=== PATIENT | female | born 1970 | race Caucasian/White ===

== ENCOUNTER 2019-01-15 13:26 | Observation (INO) ==
[2019-01-15] MEDS ORDERED: Isovue-370 500 ML BOTTLE IVP ONE (14:14)
[2019-01-15] MEDS ORDERED: Aspirin 325 MG TABLET PO ONE (14:16)
--- NOTE | 2019-01-15 14:33 | Emergency Department Note ---
Disposition Clinical Impression: Chest pain Qualifiers: Chest pain type: unspecified Qualified Code(s): R07.9 - Chest pain, unspecified Disposition: Admitted As Inpatient Condition: Fair Referrals: NONE,PCP [Primary Care Provider] - Forms: ED Satisfaction Letter Time of Disposition: 16:45 General Adult HPI - General Chief complaint: ED Chest Pain Stated complaint: Chest Pain Time Seen by Provider: 01/15/19 13:41 Source: patient Limitations: no limitations Nursing Notes Reviewed: Yes Vital Signs Reviewed: Yes - History of Present Illness HPI Narrative: Presents with chest pain is not present for the last 2 days intermittently radiating to the back between shoulder blades and intermittently pleuritic and she did go [facility] department 2 days ago was admitted overnight and her blood pressure went down and was at 75 systolic and they did a stress test which is positive and wanted to keep her for a catheterization but she did not have confidence in the cardiology doctors at that hospital so she left AGAINST MEDICAL ADVICE and then came here today to be admitted. She is still having the chest discomfort. She denies any pain or swelling of the lower extremities. No respiratory symptoms or fever. Social history: Stopped smoking in 2006 however does intermittently smoke. Family history: Positive for heart disease with her father Pain Scale: 4 - Related Data Allergies Allergy/AdvReac Type Severity Reaction Status Date / Time No Known Allergies Allergy Verified 01/15/19 13:57 Review of Systems: Constitutional: No fever Vision: No blurred vision ENT: No rhinorrhea Respiratory: No cough Allergic: No allergies : No blood in urine GI: No blood in stool Hematologic: No bruising Dermatologic: No skin rash Musculoskeletal: No pain in the extremities Neuro: No numbness of the extremities Past Medical History - Past Medical History Medical history: Reports: no medical history Psychiatric history: Reports: no psych history - Social History Smoking Status: Former smoker Smokeless Tobacco Status: No Alcohol use: Reports: none Drug use: Reports: none Physical Exam CONSTITUTIONAL: Well-appearing; well-nourished; A&O X 3, in no apparent distress HEAD: Normocephalic; atraumatic EYES: PERRL, no scleral icterus NOSE: The nose is normal in appearance without rhinorrhea NECK: No JVD or distended neck veins RESP: Normal chest excursion with respiration; breath sounds clear and equal bilaterally; no wheezes, rhonchi, or rales CARD: Regular rhythm, without murmurs, rub or gallop ABD: Non-distended; non-tender, soft, without rigidity, rebound or guarding,no pulsatile mass CHEST: No pain with palpation SKIN: Normal for age and race; warm and dry without diaphoresis ; no apparent lesions EXTREMITIES: Pulses are 2 plus and equal times 4 extremities, no peripheral edema or calf muscle pain - General Limitations: no limitations General appearance: alert, in no apparent distress Course Vital Signs Temperature 98.1 F 01/15/19 13:41 Pulse Rate 82 01/15/19 13:41 Respiratory Rate 20 01/15/19 13:41 Blood Pressure 134/90 01/15/19 13:41 O2 Sat by Pulse Oximetry 99 01/15/19 13:41 Temperature 97.9 F 01/15/19 13:48 Pulse Rate 77 01/15/19 15:58 Respiratory Rate 16 01/15/19 15:58 Blood Pressure 106/88 01/15/19 15:58 O2 Sat by Pulse Oximetry 97 01/15/19 15:58 Oxygen Delivery Oxygen Delivery Room Air Medical Decision Making - MDM Narrative Medical decision making narrative: i did review the patient's EKG and this does show normal sinus rhythm with a rate of 78 and some nonspecific anterior ST change but no acute ischemic change or arrhythmia and we do have testing ordered here including CTA of the chest as she does have back pain and pleuritic pain and this will look for pulmonary embolism and dissection as well we will get records from the previous hospital. The hypotension is concerning as well as the abnormal stress test and the patient will be admitted here. 1434 I did review the patient's test results. I did extend evaluation by getting a CT scan of the chest but this does not show evidence of dissection or pulmonary embolism. The story is concerning in that the patient was hypotensive with a blood pressure of 75 at the other hospital as well as a positive stress test and she left before the catheterization could be done and so she came here because she states she has more confidence in this hospital and I did speak with the hospitalist to accept the patient for admission and IV will terminate admission at this time. Initial troponin is negative. 1645 - Medical Records Medical records reviewed: Yes I reviewed the patient's medical records. - Lab Data Lab results reviewed: Yes I reviewed the patient's lab results. Result diagrams: 01/15/19 14:24 01/15/19 14:24 Lab Results 01/15/19 01/15/19 Range/Units 14:24 14:24 WBC 10.6 (4.3-11.1) K/mcL RBC 4.64 (3.82-4.97) M/mcL Hgb 13.7 (11.5-15.4) g/dL Hct 40.9 (35.3-44.9) % MCV 88.1 (83.0-100.0) fL MCH 29.5 (28.0-33.3) pg MCHC 33.5 (31.6-35.5) g/dL RDW 13.0 (11.5-14.5) % Plt Count 336 (140-400) K/mcL MPV 9.9 (9.4-12.4) fL Immature Gran % 0.4 (0-4) % Seg Neutrophils % 66.2 % Lymphocytes % 24.8 % Monocytes % 6.0 % Eosinophils % 2.3 % Basophils % 0.3 % Neutrophils # 7.0 (1.6-8.9) K/mcL Lymphocytes # 2.6 (0.6-4.6) K/mcL Monocytes # 0.6 (0.0-1.3) K/mcL Eosinophils # 0.2 (0.0-0.6) K/mcL Basophils # 0.0 (0.0-0.2) K/mcL Sodium 137 (136-145) mEq/L Potassium 3.8 (3.5-5.1) mEq/L Chloride 105 (98-107) mEq/L Carbon Dioxide 23 (23-29) mEq/L BUN 19 (6-20) mg/dL Creatinine 0.83 (0.60-1.20) mg/dL Est GFR ( Amer) > 60 (> 60) Est GFR (Non-Af Amer) > 60 (> 60) BUN/Creatinine Ratio 23 (6-26) Glucose 94 (70-105) mg/dL Calculated Osmolality 286 (280-300) Calcium 9.3 (8.6-10.3) mg/dL Troponin I < 0.03 (< 0.04) ng/mL - Radiology Data Radiology results reviewed: Yes I reviewed the patient's radiology results.
[2019-01-15 14:36] LABS: Basophils % 0.3 %; Eosinophils # 0.2 K/mcL (0.0-0.6); Eosinophils % 2.3 %; Hematocrit 40.9 % (35.3-44.9); Hemoglobin 13.7 g/dL (11.5-15.4); Immature Granulocytes % 0.4 % (0-4); Lymphocytes # 2.6 K/mcL (0.6-4.6); Lymphocytes % 24.8 %; Mean Corpuscular HGB Conc 33.5 g/dL (31.6-35.5); Mean Corpuscular Hemoglobin 29.5 pg (28.0-33.3); Mean Corpuscular Volume 88.1 fL (83.0-100.0); Mean Platelet Volume 9.9 fL (9.4-12.4); Monocytes # 0.6 K/mcL (0.0-1.3); Platelet Count 336 K/mcL (140-400); Red Blood Count 4.64 M/mcL (3.82-4.97); Segmented Neutrophils % 66.2 %
[2019-01-15 14:57] LABS: BUN/Creatinine Ratio 23 (6-26); Blood Urea Nitrogen 19 mg/dL (6-20); Calcium 9.3 mg/dL (8.6-10.3); Carbon Dioxide 23 mEq/L (23-29); Chloride 105 mEq/L (98-107); Glucose 94 mg/dL (70-105); Osmolality,Calculated 286 (280-300); Potassium 3.8 mEq/L (3.5-5.1); Sodium 137 mEq/L (136-145); Troponin I < 0.03 ng/mL (< 0.04); eGFR For Non-African Americans > 60 (> 60)
[2019-01-15] MEDS ORDERED: Acetaminophen 325 MG TABLET PO PRN (17:11)
[2019-01-15] MEDS ORDERED: Ondansetron ODT 4 MG TAB.RAPDIS SL PRN (17:11)
[2019-01-15] MEDS ORDERED: Naloxone 0.4 MG/ML INJ IVP PRN (17:11)
--- NOTE | 2019-01-15 17:25 | Internal Med History&Physical ---
Date of Encounter: 01/15/19 Time of Encounter: 17:05 Internal Medicine - H&P: HPI Chief complaint: chest pain Admitted From: Emergency Dept Plans for Post Hospital Care: Home History of present illness: Ms. Grace is a 48 year old female with no past med history presented to ED with chest discomfort. She was subsequently placed in observation. Ms Grace stated that she has been experiencing L sided chest discomfort ra diating to her shoulder and to her back for the last 2-3 days. She has noticed increased fatigue and dyspnea over the last 2 weeks. No fever or chills. No nausea or vomiting. She presented to [facility] and was admitted. She underwent stress test and only went 3 minutes and developed chest pain. She was told that at her age she should not have had these results. She was not happy w ith her care and left the hospital and came to [facility]. Records have been requested. She continues to have similar chest discomfort. Nothing has made it better or worse. No cough. No GI issues. No one ill. No prior episode. Unsure of cholesterol (not gone to doctor in 4 years). Father had massive [place] at age 49. At this time she is comfortable. Past Med Surg Social Fam HX - Past Medical History Source: patient Medical history: no medical history Psychiatric history: no psych history - Past Surgical History Additional surgical history: C section with hysterectomy (ovaries remain) - Social History Smoking Status: Former smoker Smokeless Tobacco Status: No Alcohol use: none Drug use: none - Family History Father Race: Hx Family Cardiac Disorders: Yes (Massive [place] age 49) Internal Medicine - H&P: Meds Allergy/AdvReac Type Severity Reaction Status Date / Time No Known Allergies Allergy Verified 01/15/19 13:57 All Systems PM: A 10-system review of systems was performed and is negative for pertinent findings except as documented above in the HPI. - Constitutional Constitutional: fatigue, malaise - EENT Eyes: no change in vision, no dry eye Ears: no decreased hearing Nose, mouth and throat: no dry mouth, no sinus pain - Cardiovascular Cardiovascular ROS IM: chest pain, dyspnea on exertion, edema (Chronic after standing all day.), no diaphoresis - Respiratory Respiratory: dyspnea on exertion, no wheezing, no snoring, no chest congestion - Gastrointestinal Gastrointestinal: no diarrhea, no heartburn, no melena - Genitourinary Genitourinary: no dysuria, no urinary frequency Menstruation: post hysterectomy - Musculoskeletal Musculoskeletal ROS IM: no arthralgias, no joint swelling - Integumentary Integumentary IM: no erythema, no rash - Neurological Neurological ROS: no tingling, no vertigo - Endocrine Endocrine IM: no cold intolerance - Hematologic/Lymphatic Hematologic/Lymphatic: no easy bleeding - Allergic/Immunologic Allergic/Immunologic: no itchy eyes - Constitutional Vitals: Temp Pulse Resp BP Pulse Ox 97.9 F 77 16 106/88 97 01/15/19 13:48 01/15/19 15:58 01/15/19 15:58 01/15/19 15:58 01/15/19 15:58 General appearance: Present: A&O X 3, pleasant, answers questions appropriately Exam: See below - Head Head exam: Present: normocephalic - Eye Eye exam: Present: EOMI, conjuntiva pink - ENT ENT exam: Present: mucous membranes moist - Neck Neck exam general surgery: Present: normal inspection. Absent: thyromegaly - Respiratory Respiratory exam: Present: rales (Scant in bases). Absent: decreased breath sounds, rhonchi, wheezes - Cardiovascular Cardiovascular exam: Present: RRR. Absent: irregular rhythm, +S3, +S4, systolic murmur, tachycardia - GI/Abdominal GI/Abdominal exam: Present: normal bowel sounds, soft. Absent: tenderness - Extremities Exam Extremities exam: Present: pedal edema, warm. Absent: tenderness - Neurological Exam Neurological exam: Present: alert, oriented X3, no focal deficits - Skin Skin exam: Present: dry, warm. Absent: rash Internal Med - H&P Results - Labs CBC & Chem 7: 01/15/19 14:24 01/15/19 14:24 Labs: Short CBC 01/15/19 Range/Units 14:24 WBC 10.6 (4.3-11.1) K/mcL Hgb 13.7 (11.5-15.4) g/dL Hct 40.9 (35.3-44.9) % Plt Count 336 (140-400) K/mcL Neutrophils # 7.0 (1.6-8.9) K/mcL BMP 01/15/19 14:24 Sodium 137 Potassium 3.8 Chloride 105 Carbon Dioxide 23 BUN 19 Creatinine 0.83 Glucose 94 Calcium 9.3 Cardiac Enzymes 01/15/19 Range/Units 14:24 Troponin I < 0.03 (< 0.04) ng/mL - EKG Data -: EKG Interpreted by Myself EKG shows normal: sinus rhythm Rate: normal - EKG Data WNL Rhythm: NSR - EKG Data Prior EKG available for review: no - Impressions ITS Impressions Chest CTA 01/15/19 14:14 IMPRESSION: No evidence of pulmonary embolism or acute pulmonary abnormality. D/ / Sandor Duran MD / Sandor Duran MD Interpreting Provider: Sandor Duran MD Chest X-Ray 01/15/19 14:14 IMPRESSION: No acute process. D/ / Dominic Gaxiola MD / Dominic Gaxiola MD Interpreting Provider: Dominic Gaxiola MD - Assessment and Plan (1) Unstable angina Current Visit: Yes Status: Suspected Assessment and plan: Ms Grace is 48 y/o female presenting with 2-3 days of L side chest pain. Had stress test at [facility] - sounds suboptimal. Records requested. Place in observation. Troponins. NPO midnight Lipid panel in AM Echocardiogram Cardiology eval - ? further evaluation Records from [facility] pending. Risk: Family history. Chol? Former smoker (2) Morbid obesity with BMI of 40.0-44.9, adult Current Visit: Yes Status: Chronic - Time Spent With Patient Total time spent is greater than 50% in coordination of care (as documented) at patient's floor/unit and/or counseling patient:
[2019-01-15] MEDS ORDERED: Nitroglycerin 0.4 MG TAB.SUBL SL PRN (17:47)
[2019-01-15] MEDS: Ibuprofen 400 MG TABLET PO PRN (19:04)
[2019-01-16] MEDS ORDERED: traMADol 50 MG TABLET PO ONE (00:31)
[2019-01-16 07:41] LABS: Hematocrit 42.1 % (35.3-44.9); Mean Corpuscular HGB Conc 33.3 g/dL (31.6-35.5); Mean Corpuscular Hemoglobin 29.8 pg (28.0-33.3); Mean Corpuscular Volume 89.6 fL (83.0-100.0); Mean Platelet Volume 10.2 fL (9.4-12.4); Platelet Count 322 K/mcL (140-400); Red Cell Distribution Width 12.9 % (11.5-14.5)
[2019-01-16 07:50] LABS: Prothrombin Time 11.6 Seconds (9.4-12.1)
--- NOTE | 2019-01-16 08:17 | Internal Med Progress Note ---
Hospitalist Progress Note - Encounter Date of Encounter: 01/16/19 - Exam Vitals: Temp Pulse Resp BP Pulse Ox 97.8 F 72 18 102/68 96 01/16/19 07:14 01/16/19 07:14 01/16/19 07:14 01/16/19 07:14 01/16/19 07:14 - Time Spent with Patient Total time spent is greater than 50% in coordination of care (as documented) at patient's floor/unit and/or counseling patient: Internal Medicine: Result - Labs CBC & Chem 7: 01/16/19 06:48 01/15/19 14:24 Labs: Short CBC 01/15/19 01/16/19 Range/Units 14:24 06:48 WBC 10.6 7.6 (4.3-11.1) K/mcL Hgb 13.7 14.0 (11.5-15.4) g/dL Hct 40.9 42.1 (35.3-44.9) % Plt Count 336 322 (140-400) K/mcL Neutrophils # 7.0 (1.6-8.9) K/mcL BMP 01/15/19 14:24 Sodium 137 Potassium 3.8 Chloride 105 Carbon Dioxide 23 BUN 19 Creatinine 0.83 Glucose 94 Calcium 9.3 Cardiac Enzymes 01/15/19 01/15/19 01/15/19 Range/Units 14:24 17:23 23:57 Troponin I < 0.03 < 0.03 < 0.03 (< 0.04) ng/mL - ABG Interpretation ABG results: PT/INR, D-dimer PT 11.6 Seconds (9.4-12.1) 01/16/19 06:48 - Impressions Impressions Chest CTA 01/15/19 14:14 IMPRESSION: No evidence of pulmonary embolism or acute pulmonary abnormality. D/ / Sandor Duran MD / Sandor Duran MD Interpreting Provider: Sandor Duran MD Chest X-Ray 01/15/19 14:14 IMPRESSION: No acute process. D/ / Dominic Gaxiola MD / Dominic Gaxiola MD Interpreting Provider: Dominic Gaxiola MD Consult Discharge Plan - Plan Referrals: Kiara Mendoza CNP [Advanced Practice Nurse] - 01/17/19 9:30 am
[2019-01-16 08:35] LABS: BUN/Creatinine Ratio 23 (6-26); Blood Urea Nitrogen 17 mg/dL (6-20); Calcium 8.8 mg/dL (8.6-10.3); Carbon Dioxide 27 mEq/L (23-29); Chloride 105 mEq/L (98-107); Chol/HDL Ratio 5.5 (0-4.9); Cholesterol 241 mg/dL (< 200); Glucose 93 mg/dL (70-105); HDL Cholesterol 44 mg/dL (40-59); LDL Cholesterol,Calculated 144 mg/dL (0-99); Osmolality,Calculated 289 (280-300); Potassium 3.8 mEq/L (3.5-5.1); Sodium 139 mEq/L (136-145); Triglycerides 267 mg/dL (< 150); eGFR For Non-African Americans > 60 (> 60)
--- NOTE | 2019-01-16 08:38 | Cardiology Consult Note ---
<TiradoRadha trevinobh - Last Filed: 01/16/19 13:17> Date of Encounter: 01/16/19 Time of Encounter: 09:20 Assessment and Plan (1) Unstable angina Current Visit: Yes Status: Suspected -Patient presents with symptoms of unstable angina for the past 4 days. She endorses that the chest pain woke her up on the Sunday morning. She also endorses shortness of breath for the past 1-1/2 weeks, she denies PND, orthopnea. -She has not seen a primary care doctor the last 4-5 years, therefore it is very hard to tell if she has medical risk factors that predisposes her to CHD like hypertension, diabetes. -She has a smoking history of 20 pack years , which she quit in 2006 -Workup in the hospital showed that patient had elevated triglycerides (267) and cholesterol (241), LDL (144) -Patient has a family history of CHD in her dad's side who of [place] when he was 49 years old -Patient was endorsing left-sided nonradiating chest pain when I examined her this morning -Stress test results from [facility] showed patient exercised to 4.6 METs and achieved a HR of 159 bpm (which was 93% of the predicted maximum) with nonspecific ST changes or arrhythmias , with an EF of 62% -Her echocardiogram showed LVEF 65%, normal left ventricular diastolic function PLAN: - Although the clinical presentation of the patient's pain appears to be non- cardiac in nature (continuos constant atypical chest pain , with normal EKG and Trops), she did have exercise induced chest pain at low workload on her stress test at the [facility]. Therefore, for those reasons she'll get a C -continue ASA -Patient will benefit from a high intensity statin on discharge, along with the antianginal coverage in form of beta venice Discussion w patient/family: The assessment and plan as outlined above was discussed with the patient and/or family members who expressed understanding and agreement. All questions were answered. Thank you for involving us in the care of your patient. Please call with any questions. History of Present Illness Consult date: 01/16/19 History of present illness: Ms. Grace is a 48 year old female with no significant past medical history who presents to ED because of substernal chest pain that began on Sunday morning. Patient endorses a non-positional chest pain that woke her up from sleep on Sunday morning which was not accompanied with diaphoresis, vomiting or nausea. She does not endorse any pain radiating to her jaw or arm but she does tell me that she has had some discomfort between her shoulder blades. Of note, patient has also been endorsing shortness of breath for the past one and half weeks but she denies any PND, orthopnea or pedal edema. She is a former smoker and used to smoke a pack a day until 2008. She hasn't seen a primary care doctor the last 4-5 years. The only medical problem that she is has had his migraine and she tells me that when she gets her migraine attacks she takes ibuprofen 'like candy' She was given nitroglycerin paste at the [facility] ER which reli eved her of her symptoms and was subsequently admitted for a stress test. However ,patient got really winded 3 minutes into the stress test and was not able to finish the entire test. She was advised to undergo left heart catheterization but patient decided to come to our hospital for further vale gement as she was not satisfied with the way she was managed there. Initial workup in our ER showed that patient's troponins were negative. Patient's EKG did not show any evidence of any ST-T changes or arrhythmia. Her CTA was negative for any evidence of pulmonary embolism. She received 325 mg aspirin in the ER. Workup did show elevated triglycerides and cholesterol. Patient has been admitted to the floor for further management Past Med Surg Social Fam HX - Past Medical History Medical history: no medical history Psychiatric history: no psych history - Past Surgical History Surgical History: non-contributory Additional surgical history: C section with hysterectomy (ovaries remain) - Social History Smoking Status: Former smoker Smokeless Tobacco Status: No Alcohol use: none Drug use: none - Family History Father Race: Hx Family Cardiac Disorders: Yes Hx Family Cancer: Yes (lung) Medications and Allergies No Known Home Drugs 01/15/19 [History] Allergy/AdvReac Type Severity Reaction Status Date / Time No Known Allergies Allergy Verified 01/15/19 20:21 All Systems Review: The remainder of the systems were reviewed and are negative Physical Examination Vital Signs, Last 4 Hours Temp Pulse Resp BP Pulse Ox 01/16/19 07:14 97.8 F 72 18 102/68 96 Other: Gen.: Vitals noted. No acute distress. Alert, awake and oriented * [address], and time, well developed, well-nourished resting comfortably in bed. Pleasant. HEENT: oropharynx clear, Normocephalic, atraumatic, MMM Neck: supple, no JVD, no lymphadenopathy, no carotid bruit. Cardiac: RRR, no murmur, +S1/S2, No BLE edema, PMI non-displaced Pulmonary: CTA bilaterally, no wheezes, rales or rhonchi, equal chest expansion, unlabored breathing Abdomen: soft, nontender, BS noted, no guarding non- distended. No organomegaly, no pulsatile masses, Skin: warm and dry, no visible lesions. Feels warm, clammy, no rashes, no lesions, no erythema MSK: ROM not assessed. no joint swelling noted, gait not assessed while in bed. Non tender calf or clubbing, no cyanosis/clubbing/ or edema Neuro: A&O, moves all extremities, no focal deficits, sensation intact Psych: Appropriate mood and behavior, normal speech Results 01/16/19 06:48 01/16/19 06:48 Lab Results 01/15/19 01/15/19 01/15/19 14:24 14:24 17:23 WBC 10.6 Hgb 13.7 Hct 40.9 Plt Count 336 INR Sodium 137 Potassium 3.8 Chloride 105 Carbon Dioxide 23 BUN 19 Creatinine 0.83 Glucose 94 Calcium 9.3 Magnesium Troponin I < 0.03 < 0.03 01/15/19 01/16/19 01/16/19 23:57 06:48 06:48 WBC 7.6 Hgb 14.0 Hct 42.1 Plt Count 322 INR Sodium 139 Potassium 3.8 Chloride 105 Carbon Dioxide 27 BUN 17 Creatinine 0.75 Glucose 93 Calcium 8.8 Magnesium 2.0 Troponin I < 0.03 01/16/19 06:48 WBC Hgb Hct Plt Count INR 1.0 Sodium Potassium Chloride Carbon Dioxide BUN Creatinine Glucose Calcium Magnesium Troponin I Consult Discharge Plan - Plan Referrals: Kiara Menodza, LITIGATION ASSOCIATE [Advanced Practice Nurse] - 01/17/19 9:30 am <Wilda Lopez - Last Filed: 01/16/19 14:34> Date of Encounter: 01/16/19 - Attending Attestation I examined this patient and my medical decision-making was reviewed with the Resident Physician. I agree with the documented findings, disposition and treatment plan as described. Assessment and Plan Discussion w patient/family: The assessment and plan as outlined above was discussed with the patient and/or family members who expressed understanding and agreement. All questions were answered. Thank you for involving us in the care of your patient. Please call with any questions. History of Present Illness History of present illness: Ms. Grace is a 48 year old female All Systems Review: The remainder of the systems were reviewed and are negative Physical Examination Vital Signs, Last 4 Hours Temp Pulse Resp BP Pulse Ox 01/16/19 11:58 97.7 F 71 17 114/76 96 Results 01/16/19 06:48 01/16/19 06:48 Lab Results 01/15/19 01/15/19 01/15/19 14:24 14:24 17:23 WBC 10.6 Hgb 13.7 Hct 40.9 Plt Count 336 INR Sodium 137 Potassium 3.8 Chloride 105 Carbon Dioxide 23 BUN 19 Creatinine 0.83 Glucose 94 Calcium 9.3 Magnesium Troponin I < 0.03 < 0.03 01/15/19 01/16/19 01/16/19 23:57 06:48 06:48 WBC 7.6 Hgb 14.0 Hct 42.1 Plt Count 322 INR Sodium 139 Potassium 3.8 Chloride 105 Carbon Dioxide 27 BUN 17 Creatinine 0.75 Glucose 93 Calcium 8.8 Magnesium 2.0 Troponin I < 0.03 01/16/19 01/16/19 06:48 06:48 WBC Hgb Hct Plt Count INR 1.0 Sodium Potassium Chloride Carbon Dioxide BUN Creatinine Glucose Calcium Magnesium Troponin I < 0.03
[2019-01-16] MEDS ORDERED: Aspirin 81 MG TAB.CHEW PO SCH (09:00)
--- NOTE | 2019-01-16 09:43 | Electrocardiograph Report ---
[address] [address] Test Date: 2019-01-15 Pat Name: Suzette Grace Department: EXAM16 Room: 3B Gender: F Humidifier Attendant: : 1970 Requested By: Jonatan Kumar Order Number: [id number] Reading MD: Wilda Lopez Measurements Intervals [place] Rate: 78 P: 60 [place]: 141 QRS: 50 QRSD: 86 T: 15 QT: 373 QTc: 425 Interpretive Statements Sinus rhythm Electronically Signed On 01-16-2019 9:41:21 EDT by Wilda Lopez
[2019-01-16] MEDS: Ibuprofen 400 MG TABLET PO PRN (11:14)
--- NOTE | 2019-01-16 12:57 | Event Note ---
Date of Encounter: 01/16/19 Time of Encounter: 12:50 - Cardiology Event Note Let this serve as the addendum to diagnostic medical sonographer's Cardiology Consult Note. Patient independently seen and examined. My assessment is as follows: Patient presented with chest pain described as left sided radiating to shoulder beginning Sunday and persisting without resolution. Went to [facility] where she had stress testing that demonstrated chest pain at low workload and recommended invasive diagnosis. Risk factors includes FH premature CAD in Father. Patient does not generally doctor. Labs here demonstrate undiagnosed dyslipidemia. ECG on presentation to [place] was normal. Troponins negative. AAOx3 on exam No cardiac murmurs Normal breath sounds Palpable distal pulses Given presentation, risk factors and recent stress testing demonstrating chest pain at low workload, recommend patient consider LHC. Discussed R/B/A of LHC with patient. Patient expressed understanding and has agreed to proceed. No upcoming elective procedures. No bleeding history. Normal renal function.
[2019-01-16] MEDS ORDERED: *HR* FentaNYL (PF) 100 MCG/2 ML VIAL ONE (13:44)
[2019-01-16] MEDS ORDERED: Verapamil 5 MG/2 ML VIAL ONE (13:44)
[2019-01-16] MEDS ORDERED: *HR* Midazolam HCl 2 MG/2 ML VIAL ONE (13:44)
[2019-01-16] MEDS ORDERED: Heparin 1,000 UNITS/500 mL 500 ML ONE (13:44)
[2019-01-16] MEDS ORDERED: 0.9 % Sodium Chloride 2,000 ML ONE (13:44)
[2019-01-16] MEDS ORDERED: *HR* Heparin 10,000 UNIT/10 ML VIAL ONE (13:45)
[2019-01-16] MEDS ORDERED: ISOVUE-370 200 ML INFUS..BTL ONE (13:45)
[2019-01-16] MEDS ORDERED: Nitroglycerin 1,000 MCG/10 ML VIAL IV ONE (13:45)
--- NOTE | 2019-01-16 14:30 | Pre-Sedation Evaluation ---
Pre-sedation evaluation - Pre-sedation checklist Date of procedure: 01/16/19 Procedure: [facility] Recent Vitals: Last Vital Signs Temp 97.7 F 01/16/19 11:58 Pulse 71 01/16/19 11:58 Resp 17 01/16/19 11:58 BP 114/76 01/16/19 11:58 Pulse Ox 96 01/16/19 11:58 H&P (including ROS) documented in medical record: Yes Previous reaction to sedatives/anesthetics: No Dietary Status: No solid food in preceding 4 hrs and no liquid in preceding 2 hrs Dentition: dentures removed ASA Classification *see protocol: CLASS II-Mild systemic disease Plan of Care: Pt appropriate candidate for procedure/moderate/conscious sedation, Risks/benefits of procedure/sedation discussed w/ patient/family Cardiac Registry (Cardio Only) - Functional Capacity Functional Capacity: >=4 METS with symptoms
--- NOTE | 2019-01-16 14:49 | Event Note ---
Date of Encounter: 01/16/19 Time of Encounter: 14:45 - Cardiology Event Note Per discussion with Dr. Grissom, mild nonobstructive diagonal disease; no intervention performed. Cardiology signing off, f/u arranged. re-consult PRN.
--- NOTE | 2019-01-16 14:59 | Invasive Diagnostic Lab Proc ---
Name: Suzette Grace Date of Study: 01/16/2019 Date: 1970 Ht: 61.0in Medical Record#: [id number] Age: 48 Wt: 178.57lb Gender: Female BSA: 1.8 Order #: [id number] BMI: 33.71 Physicians Procedure Physician: Richy Grissom MD, [facility] Referring MD: Referring MD: Staff Name Position Time In [facility], [facility] RT (R) Monitor 01:50 PM Feroz Galvan RN Bailiff 01:50 PM Thanh Richard RT (R) Scrub 01:50 PM Indications Indication Abnormal Test - Stress Procedures Performed Procedure L HRT ARTERY/VENTRICLE ANGIO Pre-Procedure Checklist Informed consent is complete signed and on chart. H&P is on chart. ID band is on and ID verified with patient. Patient NPO for procedure The procedure was described for the patient and questions were answered. Blood Pressure: 114/76 ECG is on chart. Rhythm: NSR Plan of Care Patient will tolerate the procedure without complications. Adequate level of comfort will be maintained. Hemodynamics will remain stable Patient will recover from procedure without complications. Respiratory function will be maintained. Cardiac rhythm will remain stable. Patient temperature will be maintained. Patient and/or family have verbalized understanding of the procedure. Patient Education Chief Complaint/Reason for Test: Cardiac Cath Developmental Category: Adult (18-64 years) Developmentally Appropriate for Age: Yes Learning Barriers: None Education Needs: Procedure Education Method: Verbal Information Taught: Cardiac Cath Educational Evaluation: Able to repeat information Intravenous Access Time IV Size Location DC'd Fluid/Drip Rate Units RN 20g 1 1/4" Patent On Arrival Rt Antecubital Yes 0.9NaCl 25 ml/hr Feroz Galvan RN 02:23 PM Started with 20g 1 1/4" Rt Upper Arm 0.9NaCl 25 ml/hr Kb Grimes RN Allergies No Known Allergies Vital Signs Time BP (mmHg) HR (bpm) O2 Sat. RR (bpm) LOC 114 / 76 71 96 % 16 5 = Fully awake and oriented or at pre-proc level 02:23 PM 146 / 69 156 99 % 17 02:28 PM 106 / 68 68 93 % 02:33 PM 104 / 64 62 96 % 25 02:38 PM 116 / 75 64 98 % 22 02:43 PM 118 / 66 71 97 % 19 02:48 PM 111 / 77 69 99 % 8 Procedural Medications Time Medication Dose Units Method Given By 02:02 PM Oxygen 2 L/min nasal cannula Feroz Galvan RN 02:24 PM Versed 2 mg Intravenous Feroz Galvan RN 02:24 PM Fentanyl 50 mcg Intravenous Feroz Galvan RN 02:33 PM Lidocaine 2% 20 ml Subcutaneous Richy Grissom MD, [facility] ASA Classification: CLASS II- Mild systemic disease (i.e. well-controlled diabetes, hypertension, asthma, cigarette smoking) Yolanda Score Preprocedure Postprocedure Activity 2- Moves 4 extremities sustained head lift Activity 2- Moves 4 extremities sustained head lift Circulation 2- SBP +/= 20 points of pre-anesthetic level Circulation 2- SBP +/= 20 points of pre-anesthetic level Consciousness 2- Awake and alert oriented x 3 Consciousness 2- Awake and alert oriented x 3 O2 Saturation 2- Able to maintain O2 satruation of 92% on room air O2 Saturation 2- Able to maintain O2 satruation of 92% on room air Respiratory 2- Able to deep breathe and cough well Respiratory 2- Able to deep breathe and cough well Total Score 10 Total Score 10 Contrast Agent: Isovue Diagnostic Contrast: 49 ml Total Contrast: 49 ml Fluoro Dose: 13 mGy Procedure Log Time Note Enter By 01:44 PM CathStat 01:50 PM Lisa Kirkpatrick RT (R) Position: Monitor Time in: 13:50 tsites 01:50 PM Feroz Galvan RN Position: Bailiff Time in: 13:50 tsites 01:50 PM Thanh Richard RT (R) Position: Scrub Time in: 13:50 tsites 01:50 PM Patient charges- Angio tray pack, Navilyst 3mm J, Pulse Oximetry and ACIST tubing and transducer tsites 02:02 PM Pt arrived to hemodialysis lab technician 2 at 14:02 tsites 02:02 PM Patient charges- Angio tray pack, Navilyst 3mm J, Pulse Oximetry and ACIST tubing and transducer tsites 02:02 PM Case Delayed No tsites 02:02 PM Physician arrived 14:02 tsites 02:02 PM Meet and greet completed tsites 02:02 PM Sign in performed according to hospital policy. Informed consent was obtained. tsites 02:02 PM Procedure start 14:02 tsites 02:02 PM Time: 14:02 Oxygen on at 2 L/min per nasal cannula by Feroz Galvan RN tsites 02:02 PM Hair removed from procedure site in holding area using clippers. Bilateral groin prepped with Chloraprep by Lisa Kirkpatrick), then patient was draped. Skin intact. tsites 02:02 PM Clinical Presentation: Unstable angina tsites 02:22 PM Vitals capture started with the following parameters, Patient=Adult, Interval=5 min, Initial Vntftmxh=259 mmHg, Deflation Rate=5 mmHg, Cuff placed on Left Arm 02:23 PM MW=907 bpm, MXTE=999/69 mmhg, SpO2=99.0 %, Resp=17 B/min, EtCO2=32 mmHg, Comment=sr 02:23 PM IV Supplies used: J loop Angio Cath. tsites 02:24 PM Time: 14:24 Versed 2 mg Intravenous Given by Feroz Galvan RN tsites 02:24 PM Time: 14:24 Fentanyl 50 mcg Intravenous Given by Feroz Galvan RN tsites 02:25 PM Recorded ECG: HR=67 Condition=Condition 1 02:28 PM HR=68 bpm, BNSE=121/68 mmhg, SpO2=93.0 %, EtCO2=36 mmHg 02:28 PM Pressure channel 1 zeroed. 02:33 PM HR=62 bpm, QOCG=602/64 mmhg, SpO2=96 %, Resp=25 B/min 02:33 PM Time out was performed according to hospital policy. Conscious sedation and anesthesia was achieved (see medication log with in this report above) tsites 02:34 PM Time: 14:33 20 ml Lidocaine 2% to right groin Subcutaneous Given by Richy Grissom MD, [facility] tsites 02:34 PM Access obtained by percutaneous puncture. 5Fr 10cm Terumo Robinson sheath placed in right Femoral artery. [id number] tsites 02:34 PM 0.035 145cm Navilyst 3mmJ wire [id number] tsites 02:34 PM 5Fr FL 4 catheter inserted over the wire [facility] tsites 02:36 PM LCA angiography performed in multiple views. tsites 02:36 PM Recorded Pressure: Ao, HR=69, Condition=Condition 1 (Aorta) Ao 104/45/79 02:37 PM wire reinserted catheter removed tsites 02:38 PM HR=64 bpm, WNJE=854/75 mmhg, SpO2=98 %, Resp=22 B/min 02:38 PM 5Fr FR 4 catheter inserted over the wire DN tsites 02:39 PM Recorded Pressure: Ao, KH=360, Condition=Condition 1 (Aorta) Ao ?/?/? 02:40 PM RCA angiography performed in multiple views. tsites 02:40 PM wire reinserted catheter removed tsites 02:40 PM 5Fr Pigtail catheter inserted over the wire [facility] tsites 02:40 PM Catheter crossed the aortic valve and was selectively placed in the left ventricle. Pressures recorded on pullback for left heart catheterization. tsites 02:40 PM Bolus angiogram of left Ventricle complete: 10 ml/sec for a total of 20 mls tsites 02:42 PM Recorded Pressure: LV, HR=91, Condition=Condition 1 (Left Ventricle) LV 95/21/30 02:43 PM Recorded Pressure: LV, Ao, HR=69, Condition=Condition 1 (Left Ventricle) LV 130/2/17, (Aorta) Ao 121/44/87 02:43 PM HR=71 bpm, IWSF=572/66 mmhg, SpO2=97.0 %, Resp=19 B/min 02:43 PM Bolus angiogram of right Femoral complete: 2 ml/sec for a total of 4 mls tsites 02:43 PM Coronary Dominance: Co-dominant tsites 02:44 PM Lesion found in 1st Diagonal. Pre Stenosis: 40 Pre MARGAUX Flow: tsites 02:44 PM Mid/Distal Left Anterior Descending Coronary Artery and diagonal branches with 40% stenosis. If graft is supplying this area, 0 % stenosis tsites 02:45 PM Procedure completed at 14:45 01/16/2019 tsites 02:45 PM Did you address MARGAUX flow and Dominance? YesCoronary Dominance: Co-dominant tsites 02:46 PM Sign out completed: Radiation Dose 89 mGy, 13.4 Gy/cm2 Fluoro Time: 1.6 Isovue 370 - 200ml contrast 49 ml given by Richy Grissom MD, [facility]. Complications: None. The patient was discharged out of the blood bank laboratory professional in stable condition. Sedation minutes 22. Cardiac Rehab Consult needed: Yes. Confirmed administered medications: Yes tsites 02:46 PM Isovue 370 - 200ml,1 Bottle(s) used. tsites 02:46 PM Arterial sheath pulled, Mynx closure device used and was Successful [id number] S/N. tsites 02:46 PM Estimated Blood Loss: minimal tsites 02:46 PM Post ECG NSR tsites 02:46 PM Post Blood Pressure 118/66 tsites 02:46 PM 14:46 Post Pulses Bilateral DP & PT 1+ tsites 02:47 PM Information taught Cardiac Cath and Mynx tsites 02:47 PM Education needs Procedure, Plan of Care, and Responsibilities of Patient in Care tsites 02:47 PM Learning barriers :None tsites 02:47 PM Education Methods Verbal tsites 02:47 PM Education evaluation Able to repeat information tsites 02:47 PM Site status No bleeding/hematoma - Rt Groin as reported by Thanh Richard RT (R) at 14:47 tsites 02:47 PM Opsite applied tsites 02:48 PM HR=69 bpm, IHJY=382/77 mmhg, SpO2=99.0 %, Resp=8 B/min 02:48 PM Report given to dixon CASTELLON Pt taken to 3B Room #38. 14:47 tsites 02:48 PM Delay to floor No tsites 02:48 PM Patient out of room: 14:48 tsites 02:48 PM Family placed in consult room. tsites Complications Complication None Hemodynamics Pressures Site Systolic/A Wave Diastolic/V Wave Mean AO 104 45 79 AO LV 95 21 30 LV 130 2 17 AO 121 44 87 Post Procedure Information Blood Pressure: 118/66 mmHg Rhythm: NSR Post procedural instructions were given Closure Device Time Device Success/Fail 01/16/2019 2:49:00 PM MynxGrip Successful Site Checks Time Location Status Staff Sheath In? Note 02:47 PM Rt Groin No bleeding/hematoma Thanh Richard RT (R) Pulses Time Site Pre-Procedure Post-Procedure Note Bilateral DP & PT 1+ Bilateral radial 2+ 2:46:00 PM Bilateral DP & PT 1+ Updated by Lisa Kirkpatrick RT (R) on 01/16/2019 2:51:37 PM Lisa Kirkpatrick RT electronically signed on 01/16/2019 2:52:36 PM with status of Final
--- NOTE | 2019-01-16 15:25 | Discharge Summary ---
- NOTES TO OUTPATIENT PROVIDER Notes to Outpatient Provider: Pt admitted with chest pain. Underwent LHC with no intervention. Discharged on ASA and statin. Orders not resulted at time of discharge: Pending orders 01/16/19 12:57 Left Heart Cath [CL Cardiac Catheterization] [CL] Routine 01/17/19 04:00 CMP [Comprehensive Metabolic Panel] AM 0400 Date of Encounter: 01/16/19 Time of Encounter: 15:23 - Discharge Diagnosis (1) Unstable angina Priority: Primary Status: Ruled-out (2) Morbid obesity with BMI of 40.0-44.9, adult Priority: Secondary Status: Chronic (3) Hyperlipidemia Priority: Secondary Status: Chronic Qualifiers: Hyperlipidemia type: mixed hyperlipidemia Qualified Code(s): E78.2 - Mixed hyperlipidemia Hospital course: Ms. Grace is a 48 year old female with no medical history presented to ED with chest discomfort. She was placed in observation for further evaluation. Ms Grace was placed in observation for chest pain. She had negative troponins and EKG. Records received from [facility] and ultimately it was decided to proceed with LHC. She underwent LHC and had minimal nonocclusive diagonal disease. No intervention done. She is now ready for discharge home and further work up as outpatient for any persistent symptoms. - Time Spent with Patient Total time spent providing and/or coordinating discharge services: - Discharge Medications Prescriptions: New Atorvastatin [Lipitor] 40 mg PO HS #30 tablet Aspirin 81 mg PO DAILY tab.chew Home Medications: Aspirin 81 mg PO DAILY tab.chew 01/16/19 [Rx] Atorvastatin [Lipitor] 40 mg PO HS #30 tablet 01/16/19 [Rx] Allergies/Adverse Reactions: Allergy/AdvReac Type Severity Reaction Status Date / Time No Known Allergies Allergy Verified 01/15/19 20:21 Date of admission: 01/15/19 16:59 Primary care physician: PCP NONE Consults: 01/15/19 17:13 Consult to Cardiology [CONS] Routine Comment: Consulting Provider: Cardiology Marie Reason for Consult: Chest pain, family history. ? abnormal stress at [facility] (records requested) Call Completed: No Discharging clinician: Octavio Siegel Anticipated date of discharge: 01/16/19 - Constitutional Vitals: Temp Pulse Resp BP Pulse Ox 97.7 F 68 16 110/76 96 01/16/19 11:58 01/16/19 15:00 01/16/19 15:00 01/16/19 15:00 01/16/19 15:00 General appearance: Present: A&O X 3, pleasant, answers questions appropriately Exam: See below - Head Head exam: Present: normocephalic - Eye Eye exam: Present: EOMI, conjuntiva pink - ENT ENT exam: Present: normal exam - Respiratory Respiratory exam: Present: CTAB. Absent: rales, rhonchi, wheezes - Cardiovascular Cardiovascular exam: Present: RRR - GI/Abdominal GI/Abdominal exam: Present: soft. Absent: tenderness - Extremities Exam Extremities exam: Present: warm. Absent: tenderness - Neurological Exam Neurological exam: Present: alert, oriented X3 - Skin Skin exam: Present: dry, warm. Absent: rash - Patient Status Disposition: Home, Self-Care Condition: Good Functional capacity at discharge: independent ambulation Overall status at discharge: patient is progressing back to baseline - Discharge Instructions Follow Up With: Kiara Mendoza [employer]IE[employer] DOCKING MASTER [Advanced Practice Nurse] - 01/17/19 9:30 am - Diet and Activity Activity: increase activity as tolerated Diet: low fat, low cholesterol
[2019-01-16 18:50] VITALS: BP 105/71
== END 2019-01-16 18:53 | disposition home or self-care (01) ==
LOC: 3BNU 13:26 → EMEROOARM 13:26 → SUATTDRO 16:59 → 3BNU 18:56
PROVIDERS: ADMIT Internal Medicine; ATTEND Internal Medicine